=== PATIENT | female | born 1990 | race Caucasian/White ===

== ENCOUNTER 2023-11-28 06:53 | Day surgery (SDC) | payer MEDICAID ==
[~2023-11-28] VITALS: Ht 165.1 cm; Wt 124.7 kg
[2023-11-28] MEDS ORDERED: MEPERIDINE 100 MG INJ. 100 MG/ML VIAL ONE (07:11)
[2023-11-28] MEDS ORDERED: MIDAZOLAM HCL 5 MG/5 ML VIAL ONE (07:11)
[2023-11-28 08:06] LABS: HCG,QUAL RESULT NEGATIVE (NEGATIVE)
[2023-11-28 15:26] VITALS: O2SAT 97
[2023-11-28 16:11] VITALS: BP_SYST 97; PULSE 80; RESP 18
== END 2023-11-29 11:34 | disposition home or self-care (01) ==
LOC: SDS 06:53 → SMU 06:54 → SDS 11-29 11:34
PROVIDERS: ATTEND Internal Medicine Gastroenterology
DX: R19.7 Diarrhea, unspecified (principal); K63.89 Other specified diseases of intestine; R11.2 Nausea with vomiting, unspecified; K64.8 Other hemorrhoids; J45.909 Unspecified asthma, uncomplicated; Z90.49 Acquired absence of other specified parts of digestive tract; Z79.899 Other long term (current) drug therapy; Z91.013 Allergy to seafood
CPT/HCPCS: 45380; 99152; 84703; 88305; G0378; J2250; J2175